=== PATIENT | male | born 1930 | race Caucasian/White ===

== ENCOUNTER 2018-08-27 20:58 | Inpatient (IN) | payer MEDICARE ==
[~2018-08-27] VITALS: Ht 172.7 cm; Wt 65.8 kg
--- NOTE | 2018-08-27 21:25 | NUR ---
Patient bib caregiver. AAOX2. Speech is clear. No neuro deficits. Patient came in for c/o generalized weakness per caregiver. Respiratory even and unlabored. No GI/ distress noted Patient in bed at lowest position, side rails upx2, call light within reach. Fall precautions implemented per protocol.
[2018-08-27] MEDS ORDERED: LORA2TAB95 PO (21:31)
[2018-08-27] MEDS ORDERED: IPRA4AER IH (21:31)
[2018-08-27] MEDS ORDERED: TRAZ-214 PO (21:31)
[2018-08-27] MEDS ORDERED: POTA10TA15 PO (21:31)
[2018-08-27] MEDS ORDERED: FURO-152 PO (21:31)
[2018-08-27] MEDS ORDERED: PIPERACILLIN/TAZOBACTAM/D5W 50 ML IV ONE (21:59)
[2018-08-27] MEDS ORDERED: PIPERACILLIN SODIUM/TAZOBACTAM 3.375 G in IV DEXTROSE 5% 50 ML IV ONE (22:00)
[2018-08-27] MEDS ORDERED: LEVOFLOXACIN 500 MG/D5W 100ML PIGGYBACK IV ONE (22:00)
[2018-08-27] MEDS ORDERED: IV NORMAL SALINE 1000 ML BAG IV ONE (22:00)
[2018-08-27 22:15] LABS: BASOPHILS % (AUTO) 0.4 % (0.0-2.0); EOSINOPHILS # (AUTO) 0.1 K/uL (0.0-0.7); EOSINOPHILS % (AUTO) 0.6 % (0.0-7.0); HEMATOCRIT 50.2 % (36.7-47.1); HEMOGLOBIN 16.2 g/dL (12.5-16.3); LYMPHOCYTES # (AUTO) 0.9 K/uL (20.0-40.0); LYMPHOCYTES % (AUTO) 9.8 % (20.5-51.5); MEAN CORPUSCULAR HEMOGLOBIN 29.2 uug (23.8-33.4); MEAN CORPUSCULAR HGB CONC 32 g/dL (32.5-36.3); MEAN CORPUSCULAR VOLUME 90.4 fL (73.0-96.2); MONOCYTES # (AUTO) 0.2 K/uL (2.0-10.0); MONOCYTES % (AUTO) 1.9 % (0.0-11.0); NEUTROPHILS # (AUTO) 7.8 K/uL (1.8-8.9); NEUTROPHILS % (AUTO) 87.3 % (38.5-71.5); PLATELET COUNT (AUTO) 115 K/uL (152-348); RED BLOOD CELL COUNT(AUTO) 5.55 MIL/uL (4.06-5.63)
[2018-08-27 22:21] LABS: CARBON DIOXIDE 29 mmol/L (21-32); CHLORIDE 122 mmol/L (98-107); CREATININE 1.2 mg/dL (0.6-1.3); GLUCOSE 108 mg/dL (74-106); UREA NITROGEN, BLOOD 39 mg/dL (7-18)
[2018-08-27 22:29] LABS: BAND % (MANUAL) 3 % (0-10); LYMPHOCYTES % (MANUAL) 9 % (20-40); NEUTROPHILS % (MANUAL) 88 % (42-75)
[2018-08-27] MEDS ORDERED: LIDOCAINE 2% (UROJET) 10 ML JELLY MM ONE ×2 (22:30→22:32)
--- NOTE | 2018-08-27 22:30 | NUR ---
Patient in bed at lowest position, NAD.
[2018-08-27 22:35] LABS: ALANINE AMINOTRANSFERASE 28 U/L (16-63); ALKALINE PHOSPHATASE 118 U/L (50-136); ASPARTATE AMINOTRANSFERASE 16 U/L (15-37); BILIRUBIN,DIRECT 0.3 mg/dL (0.0-0.2); BILIRUBIN,TOTAL 1.3 mg/dL (0.2-1.0); TOTAL PROTEIN, SERUM 7.6 g/dL (6.4-8.2)
[2018-08-27] MEDS ORDERED: LEVOFLOXACIN 500 MG/D5W 100 ML ONE (22:52)
[2018-08-27 23:47] LABS: *BILIRUBIN,URIN NEGATIVE (NEGATIVE); *BLOOD, URINE 3+ (NEGATIVE); *CLARITY,URINE CLOUDY (CLEAR); *COLOR,URINE YELLOW (YELLOW); *KETONES,URINE NEGATIVE (NEGATIVE); *UROBILINOGEN,URINE 0.2 E.U./dl (NORMAL); LEUKOCYTE ESTERASE ,URINE 2+ (NEGATIVE); NITRITE, URINE POSITIVE (NEGATIVE); UGLUCOSE NEGATIVE (NEGATIVE)
[2018-08-27 23:55] LABS: BACTERIA,URINE MANY /HPF (NONE SEEN); RBC,URINE TNTC /HPF (0-3); SQUAMOUS EPITHELIAL CELL,UR MANY /HPF (NONE SEEN); WBC,URINE TNTC /HPF (0-3)
--- NOTE | 2018-08-28 00:04 | NUR ---
[facility] called for panel.
[2018-08-28] MEDS ORDERED: IV NS 1000 ML 1,000 ML IV PRN (00:09)
[2018-08-28] MEDS ORDERED: HYDROCODONE/APAP 5-325MG TABLET PO PRN (00:15)
[2018-08-28] MEDS ORDERED: Medication Not On Formulary EA (Lorazepam (Ativan) 2 MG) PO PRN (00:15)
[2018-08-28] MEDS ORDERED: MAGNESIUM HYDROXIDE 30 ML LIQUID UDC PO PRN (00:15)
[2018-08-28] MEDS ORDERED: ONDANSETRON 4 MG/2 ML VIAL IV PRN (00:15)
[2018-08-28] MEDS ORDERED: ACETAMINOPHEN 325 MG TABLET PO PRN (00:15)
[2018-08-28] MEDS ORDERED: Z GUARD REMEDY PASTE 57 GM TUBE TOP PRN (00:15)
--- NOTE | 2018-08-28 00:18 | NUR ---
Report given to GUERO Glover TELE
--- NOTE | 2018-08-28 00:46 | NUR ---
Spoke to Aarti caregiver, patient did not come with advanced directive. Per caregiver she states that patient is DNR. Advised caregiver to fax over a copy or bring it in order to deliver the desired care per patients needs. Caregiver verbalizes instructions given.
--- NOTE | 2018-08-28 01:03 | NUR ---
Patient transfered to [facility] in stable condition.
[2018-08-28 01:30] VITALS: BP 113/73
[2018-08-28 04:00] VITALS: BP 82/54
[2018-08-28] MEDS ORDERED: PIPERACILLIN/TAZOBACTAM/D5W 50 ML IV ONE (05:42)
[2018-08-28] MEDS ORDERED: PIPERACILLIN/TAZOBACTAM/D5W 50 ML IV SCH (06:00)
[2018-08-28] MEDS: PANTOPRAZOLE SODIUM 40 MG TABLET.DR PO SCH (06:20)
--- NOTE | 2018-08-28 07:04 | NUR ---
end of shift report ADMITTED TO ROOM 305; PATIENT HYPOTHERMIC AT 94; PLACED SNEHA HUGGER; SKIN SURVEILLANCE DONE; KEPT SAFE AND COMFORTABLE; VSS; IVF STARTED
[2018-08-28] MEDS ORDERED: IV 1/2NS 1000 ML 1,000 ML IV PRN (08:45)
[2018-08-28 10:10] LABS: BASOPHILS % (AUTO) 0.2 % (0.0-2.0); EOSINOPHILS % (AUTO) 0.1 % (0.0-7.0); HEMATOCRIT 41.5 % (36.7-47.1); HEMOGLOBIN 13.6 g/dL (12.5-16.3); LYMPHOCYTES # (AUTO) 0.8 K/uL (20.0-40.0); LYMPHOCYTES % (AUTO) 6.5 % (20.5-51.5); MEAN CORPUSCULAR HEMOGLOBIN 29.4 uug (23.8-33.4); MEAN CORPUSCULAR HGB CONC 33 g/dL (32.5-36.3); MEAN CORPUSCULAR VOLUME 89.9 fL (73.0-96.2); MONOCYTES # (AUTO) 0.3 K/uL (2.0-10.0); MONOCYTES % (AUTO) 2.1 % (0.0-11.0); NEUTROPHILS # (AUTO) 11.4 K/uL (1.8-8.9); NEUTROPHILS % (AUTO) 91.1 % (38.5-71.5); PLATELET COUNT (AUTO) 88 K/uL (152-348); RED BLOOD CELL COUNT(AUTO) 4.62 MIL/uL (4.06-5.63); WHITE BLOOD COUNT (AUTO) 12.5 K/uL (3.6-10.2)
--- NOTE | 2018-08-28 10:22 | NUR ---
The patient is confused and refusing the exam. The order for complete abdomen ultrasound is edited to abdomen limited. NATACHA song.
[2018-08-28 10:26] LABS: CARBON DIOXIDE 25 mmol/L (21-32); CHLORIDE 123 mmol/L (98-107); CREATININE 1.3 mg/dL (0.6-1.3); GLUCOSE 70 mg/dL (74-106); POTASSIUM 3.7 mmol/L (3.5-5.1); UREA NITROGEN, BLOOD 39 mg/dL (7-18)
[2018-08-28 10:29] LABS: BAND % (MANUAL) 5 % (0-10); LYMPHOCYTES % (MANUAL) 7 % (20-40); MONOCYTES % (MANUAL) 4 % (2-10); NEUTROPHILS % (MANUAL) 84 % (42-75)
[2018-08-28 11:30] VITALS: BP 162/58
--- NOTE | 2018-08-28 13:30 | NUR ---
Patient removed gautam catheter, and IV left antecubital. Patient cleaned and partial linen change. Saravanan Combs RN
[2018-08-28] MEDS: PIPERACILLIN/TAZOBACTAM/D5W 3.375 G in PREMIXED 1 EACH IV SCH ×2 (14:49→22:22)
[2018-08-28 16:15] VITALS: BP 105/69
--- NOTE | 2018-08-28 18:00 | NUR ---
Patient 2nd IV out, and did start #18 guage IV Left forearm. Feeding patient 80% of dinner, full assist. Saravanan Combs RN
--- NOTE | 2018-08-28 19:00 | NUR ---
PATIENT AWAKE BUT FORGETFUL. PATIENT PULLED OUT IV, AM RN REINSERT NEW ONE ON R FOREARM. REORIENT PATIENT, CONT TO MONITOR.
[2018-08-28 20:00] VITALS: BP 103/72
[2018-08-28] MEDS: TRAZODONE 100 MG TABLET PO SCH (20:00)
--- NOTE | 2018-08-28 20:00 | NUR ---
PATIENT WAS PICKING ON IV LINES. ASKED PATIENT IF HE IN PAIN, STATED HE'S NOT BUT WANTS FOOD. GIVEN PATIENT A TUNA SANDWICH, PUDDING AND WATER. KEPT PATIENT CLEAN AND DRY. PATIENT EXPRESSED SATISFACTION ON MEALS GIVEN. CONT TO REORIENT PATIENT NOT TO PULLED OUT HIS IV LINE. CONT TO MONITOR.
[2018-08-28] MEDS: LORAZEPAM 1 MG TABLET PO PRN ×2 (21:16→21:17)
--- NOTE | 2018-08-28 21:17 | NUR ---
PATIENT RESTLESS, PULLED OUT IV LINE AGAIN. PATIENT RISK FOR INJURY, REORIENT PATIENT NOT TO REMOVE IV LINE, BUT NOT EFFECTIVE, PATIENT UNABLE TO FOLLOW INSTRUCTIONS. GIVEN ATIVAN ORDERED FOR RESTLESSNESS AND PULLING OUT IV LINES. CONT TO MONITOR.
[2018-08-29] VITALS: BP 90/57
--- NOTE | 2018-08-29 | NUR ---
NOTIFY NOMI AMOS NP THAT PATIENT PULLING OUT IV MULTIPLE TIMES, WITH ORDER TO PUT HAND MITTENTS.
[2018-08-29 04:00] VITALS: BP 103/65
[2018-08-29] MEDS: PIPERACILLIN/TAZOBACTAM/D5W 3.375 G in PREMIXED 1 EACH IV SCH (06:04)
--- NOTE | 2018-08-29 06:10 | NUR ---
PLACE A CALL TO DR. KAZ MITCHELL AND NOTIFY MD THAT PATIENT HAS NO FAMILY THAT WILL SIGN THE CONSENT FOR HIDA SCAN. MD DISCONTINUE THE ORDER, NOTIFY RADIOLOGY DEPT.
[2018-08-29] MEDS: PANTOPRAZOLE SODIUM 40 MG TABLET.DR PO SCH (06:25)
[2018-08-29 06:54] LABS: BASOPHILS % (AUTO) 0.4 % (0.0-2.0); EOSINOPHILS # (AUTO) 0.1 K/uL (0.0-0.7); EOSINOPHILS % (AUTO) 0.7 % (0.0-7.0); HEMATOCRIT 35.9 % (36.7-47.1); HEMOGLOBIN 11.9 g/dL (12.5-16.3); LYMPHOCYTES # (AUTO) 1.3 K/uL (20.0-40.0); LYMPHOCYTES % (AUTO) 15.4 % (20.5-51.5); MEAN CORPUSCULAR HEMOGLOBIN 29.6 uug (23.8-33.4); MEAN CORPUSCULAR HGB CONC 33 g/dL (32.5-36.3); MEAN CORPUSCULAR VOLUME 89.5 fL (73.0-96.2); MONOCYTES # (AUTO) 0.3 K/uL (2.0-10.0); MONOCYTES % (AUTO) 3.2 % (0.0-11.0); NEUTROPHILS # (AUTO) 6.6 K/uL (1.8-8.9); NEUTROPHILS % (AUTO) 80.3 % (38.5-71.5); PLATELET COUNT (AUTO) 69 K/uL (152-348); RED BLOOD CELL COUNT(AUTO) 4.01 MIL/uL (4.06-5.63); WHITE BLOOD COUNT (AUTO) 8.2 K/uL (3.6-10.2)
[2018-08-29 07:14] LABS: THYROID STIMULATING HORMONE 1.098 mIU/mL (0.358-3.740)
--- NOTE | 2018-08-29 07:20 | NUR ---
Upon receiving report pt. restless and agitated. LfA swelling, cold to touch iv. site noted to be wrapped with dressing. dressing removed arm elevated. pt. on NC 4 liter vitals stable.
[2018-08-29 07:21] LABS: BAND % (MANUAL) 3 % (0-10); LYMPHOCYTES % (MANUAL) 24 % (20-40); MONOCYTES % (MANUAL) 2 % (2-10); NEUTROPHILS % (MANUAL) 71 % (42-75)
[2018-08-29 07:24] LABS: ALANINE AMINOTRANSFERASE 21 U/L (16-63); ALKALINE PHOSPHATASE 79 U/L (50-136); ASPARTATE AMINOTRANSFERASE 36 U/L (15-37); BILIRUBIN,DIRECT 0.2 mg/dL (0.0-0.2); BILIRUBIN,TOTAL 2.3 mg/dL (0.2-1.0); CARBON DIOXIDE 25 mmol/L (21-32); CHLORIDE 124 mmol/L (98-107); CHOLESTEROL 84 mg/dL (<200); CREATININE 1.5 mg/dL (0.6-1.3); GLUCOSE 81 mg/dL (74-106); HDL CHOLESTEROL 42 mg/dL (40-60); MAGNESIUM 2.2 mg/dL (1.8-2.4); PHOSPHOROUS 2.3 mg/dL (2.5-4.9); TOTAL PROTEIN, SERUM 5.5 g/dL (6.4-8.2); TRIGLYCERIDES 55 MG/DL (30-150); UREA NITROGEN, BLOOD 39 mg/dL (7-18)
--- NOTE | 2018-08-29 07:28 | NUR ---
PATIENT PULLING IV AND TUBES, UNABLE TO FOLLOW INSTRUCTIONS, RISK FOR INJURY. NOTIFY DANDRE WITH ORDER. Addendum: 08/29/18 at 0751 by VALERIE TORRES RN PATIENT PULLING IV AND TUBES, UNABLE TO FOLLOW INSTRUCTIONS, RISK FOR INJURY. NOTIFY DANDRE WITH ORDER. CHARTING IN ERROR.
[2018-08-29] MEDS ORDERED: DEXTROSE 50% 50 ML DISP.SYRIN IV PRN (07:45)
[2018-08-29] MEDS ORDERED: NEUTRA PHOS PACKET PO ONE (07:45)
[2018-08-29 08:00] VITALS: BP 104/65
[2018-08-29] MEDS ORDERED: POTASSIUM PHOSPHATE MM 7.5 MMOL in IV DEXTROSE 5% 100 ML IV SCH (08:45)
[2018-08-29] MEDS: POTASSIUM CHLORIDE 20 MEQ in IV D5W 1000ML 1,000 ML IV PRN ×2 (09:01→20:02)
--- NOTE | 2018-08-29 09:57 | NUR ---
INFORMATION SENT: FACESHEET,CONSULTATION,H&P,IMAGING,24 HOURS REPORT,UR-08/28 INSURANCE NAME: [facility] FAX NUMBER: [phone] FAX SENT
[2018-08-29] MEDS: BLOOD SUGAR DIAGNOSTIC 1 EACH STRIP VI SCH ×3 (11:22→23:41)
[2018-08-29 11:39] VITALS: BP 110/68
[2018-08-29] MEDS: MEROPENEM 500 MG in IV NORMAL SALINE 50 ML IV SCH (13:23)
[2018-08-29 15:45] VITALS: BP 114/74
[2018-08-29] MEDS: LORAZEPAM 1 MG TABLET PO PRN (17:18)
--- NOTE | 2018-08-29 18:35 | NUR ---
Patient left in bed resting slightly agitated and medicated as ordered. , awaiting 1:1 for safety due several attempts to get out of bed un-supervised currently on restrains asim Mitbernardo extremities warm to touch circulation intact. Tolerated food with no signs of aspiration.
--- NOTE | 2018-08-29 19:25 | NUR ---
Received patient awake in bed, not in any form of distress. Noted with oxygen support at 4lpm via nasal cannula, tolerating with oxygen saturation at 100%. Patient is confused and had attempt to get out of bed during the day shift hence the reason for a 1:1 sitter at the bedside for safety. With IV access at the left upper arm to ongoing IV fluid, infusing well. With bilateral mittens. Noted with air mattress in place and SCD on both legs. Bed in low position, locked, side rails up for safety. Will continue to monitor.
[2018-08-29] MEDS: TRAZODONE 100 MG TABLET PO SCH (20:04)
[2018-08-29 20:36] VITALS: BP 101/65
[2018-08-29] MEDS: INSULIN REGULAR, HUMAN 300 UNIT/3 ML VIAL SQ PRN (23:45)
[2018-08-30 00:05] VITALS: BP 116/60
--- NOTE | 2018-08-30 00:05 | NUR ---
Unable to check patient's temperature orally, checked rectal temperature = 95.8F, placed Tracy hugger and notified sales consultant , Joao Valderrama. will continue to monitor closely, noted sitter present at bedside for safety.
--- NOTE | 2018-08-30 01:18 | NUR ---
Spoke with Joao Valderrama NP who said to continue the Tracy Hugger and closely monitor the patient's temperature. No new orders per Dr. Valderrama.
[2018-08-30] MEDS: MEROPENEM 500 MG in IV NORMAL SALINE 50 ML IV SCH ×2 (01:52→14:38)
[2018-08-30] MEDS: LORAZEPAM 1 MG TABLET PO PRN (01:58)
[2018-08-30] MEDS: PANTOPRAZOLE SODIUM 40 MG TABLET.DR PO SCH (06:26)
[2018-08-30] MEDS: POTASSIUM CHLORIDE 20 MEQ in IV D5W 1000ML 1,000 ML IV PRN ×3 (06:27→23:27)
[2018-08-30] MEDS: BLOOD SUGAR DIAGNOSTIC 1 EACH STRIP VI SCH ×4 (06:35→23:30)
--- NOTE | 2018-08-30 06:42 | NUR ---
Patient slept intermittently throughout the night. Maintained oxygen support at 4lpm via nasal cannula. Patient still confused and gets agitated, noted with 1:1 sitter at the bedside for safety. Still with IV access at the left upper arm to ongoing IV fluid, infusing well. Patient still attempting to remove IV access hence still with bilateral mittens. Turned to sides and repositioned. Closely monitored temperature, noted latest oral temperature is 97.7F, david hugger removed, stand by at bedside.
[2018-08-30 07:24] LABS: BASOPHILS # (AUTO) 0.1 K/uL (0.0-8.0); BASOPHILS % (AUTO) 1.3 % (0.0-2.0); EOSINOPHILS # (AUTO) 0.1 K/uL (0.0-0.7); EOSINOPHILS % (AUTO) 1.4 % (0.0-7.0); HEMOGLOBIN 12.1 g/dL (12.5-16.3); LYMPHOCYTES # (AUTO) 1.3 K/uL (20.0-40.0); LYMPHOCYTES % (AUTO) 25.3 % (20.5-51.5); MEAN CORPUSCULAR HEMOGLOBIN 29.6 uug (23.8-33.4); MEAN CORPUSCULAR HGB CONC 34 g/dL (32.5-36.3); MEAN CORPUSCULAR VOLUME 88.5 fL (73.0-96.2); MONOCYTES # (AUTO) 0.2 K/uL (2.0-10.0); MONOCYTES % (AUTO) 4.3 % (0.0-11.0); NEUTROPHILS # (AUTO) 3.4 K/uL (1.8-8.9); NEUTROPHILS % (AUTO) 67.7 % (38.5-71.5); PLATELET COUNT (AUTO) 70 K/uL (152-348); RED BLOOD CELL COUNT(AUTO) 4.07 MIL/uL (4.06-5.63)
[2018-08-30 07:34] LABS: CARBON DIOXIDE 23 mmol/L (21-32); CHLORIDE 119 mmol/L (98-107); CREATININE 1.2 mg/dL (0.6-1.3); GLUCOSE 94 mg/dL (74-106); PHOSPHOROUS 2.5 mg/dL (2.5-4.9); POTASSIUM 3.5 mmol/L (3.5-5.1); UREA NITROGEN, BLOOD 26 mg/dL (7-18)
--- NOTE | 2018-08-30 07:36 | NUR ---
INFORMATION SENT: FACESHEET,PROGRESS NOTES 08/29,UR-08/29,IMAGING,24 HOURS REPORT INSURANCE NAME:[facility] FAX NUMBER: [phone] / [phone] FAX SENT
[2018-08-30 08:19] LABS: BAND % (MANUAL) 1 % (0-10); EOSINOPHILS % (MANUAL) 1 % (0-8); LYMPHOCYTES % (MANUAL) 30 % (20-40); MONOCYTES % (MANUAL) 4 % (2-10); NEUTROPHILS % (MANUAL) 63 % (42-75)
[2018-08-30 08:22] LABS: REACTIVE LYMPHOCYTES 1 % (0-0)
[2018-08-30 11:22] VITALS: BP 108/52
[2018-08-30 15:37] VITALS: BP 108/63
[2018-08-30] MEDS ORDERED: DEXTROSE 5% IV ONE (17:30)
[2018-08-30] MEDS ORDERED: GENTAMICIN SULFATE IV ONE (17:30)
--- NOTE | 2018-08-30 17:30 | NUR ---
contacted md for change of condition per observation of disc pad grinder. RN TELEPHONE TRIAGE states that patient was more alert and oriented from previous days. pt also has non productive cough. commented that patient also has consistency of diet changed to full liquid but patient unable to swallow and eat when observed. pt placed on NPO and had stat cxr ordered. labs ordered. will continue to monitor.
--- NOTE | 2018-08-30 17:40 | NUR ---
CLINICAL PHARMACY NOTE: GENTAMICIN PHARMACY TO DOSE Subjective: To start gentamicin in this 87 y/o male for indication of UTI Objective: height 172cm weight 66kg bmi 22.2 BUN 26 Scr 1.2 (same as baseline) wbc 5.0 temp 97.2 Assessment/Plan Will start extended dosing interval as pt renal fxn remains fairly stable, per RN report and MD notes, no mentions of ascites, kenyon or other criteria to exclude. Will dose 460mg x 1 gentamicin dose (~7mg/kg TBW - pt not obese) and take random level ~10hrs later scheduled draw at 0430 tomorrow. Will check level with nomogram for further extended dosing. Will follow
--- NOTE | 2018-08-30 19:20 | NUR ---
Received patient asleep on high back rest, not in any form of distress. Noted with oxygen support at 3lpm via nasal cannula, tolerated. Per report patient still is confused and had attempts to get out of bed during the day shift hence the reason for a 1:1 sitter at the bedside for safety. With IV access at the left upper arm to ongoing IV fluid, infusing well now at 75mls/hr. Still with bilateral mittens. Noted with air mattress in place and SCD on both legs. Patient during the day was unable to tolerate full liquid thickened diet. Patient to be maintained on NPO. Bed in low position, locked, side rails up for safety. Will continue to monitor.
[2018-08-30 20:12] VITALS: BP 100/59
[2018-08-30] MEDS: TRAZODONE 100 MG TABLET PO SCH (21:00)
[2018-08-31 05:17] VITALS: BP 102/59
[2018-08-31 05:26] LABS: BASOPHILS % (AUTO) 0.6 % (0.0-2.0); EOSINOPHILS # (AUTO) 0.1 K/uL (0.0-0.7); EOSINOPHILS % (AUTO) 1.3 % (0.0-7.0); HEMATOCRIT 38.4 % (36.7-47.1); HEMOGLOBIN 12.8 g/dL (12.5-16.3); LYMPHOCYTES # (AUTO) 1.3 K/uL (20.0-40.0); LYMPHOCYTES % (AUTO) 23.2 % (20.5-51.5); MEAN CORPUSCULAR HEMOGLOBIN 29.6 uug (23.8-33.4); MEAN CORPUSCULAR HGB CONC 33 g/dL (32.5-36.3); MEAN CORPUSCULAR VOLUME 88.9 fL (73.0-96.2); MONOCYTES # (AUTO) 0.2 K/uL (2.0-10.0); MONOCYTES % (AUTO) 4.3 % (0.0-11.0); NEUTROPHILS # (AUTO) 3.9 K/uL (1.8-8.9); NEUTROPHILS % (AUTO) 70.6 % (38.5-71.5); PLATELET COUNT (AUTO) 77 K/uL (152-348); RED BLOOD CELL COUNT(AUTO) 4.32 MIL/uL (4.06-5.63); WHITE BLOOD COUNT (AUTO) 5.5 K/uL (3.6-10.2)
[2018-08-31 05:34] LABS: CARBON DIOXIDE 25 mmol/L (21-32); CHLORIDE 113 mmol/L (98-107); CREATININE 1.1 mg/dL (0.6-1.3); GLUCOSE 107 mg/dL (74-106); POTASSIUM 3.8 mmol/L (3.5-5.1); UREA NITROGEN, BLOOD 18 mg/dL (7-18)
[2018-08-31] MEDS: BLOOD SUGAR DIAGNOSTIC 1 EACH STRIP VI SCH ×4 (05:50→23:56)
[2018-08-31] MEDS: PANTOPRAZOLE SODIUM 40 MG TABLET.DR PO SCH (06:14)
--- NOTE | 2018-08-31 06:24 | NUR ---
Patient slept intermittently throughout the night. Maintained oxygen support at 4lpm via nasal cannula. Still with 1:1 sitter at the bedside for safety. Still with IV access at the left upper arm to ongoing IV fluid, infusing well.Turned to sides and repositioned. Patient afebrile and no hypothermic episodes noted. Ensured safety and comfort. No other untoward events noted.
--- NOTE | 2018-08-31 06:29 | NUR ---
Patient still to sleepy to take medication, patient has a high risk for aspiration.
--- NOTE | 2018-08-31 07:10 | NUR ---
received report from shift supervisor melting nurse, patient in bed asleep, no distress noted at this time, bed in low position, side rails up x2, sitter at bedside.
[2018-08-31 08:00] VITALS: BP 125/78
--- NOTE | 2018-08-31 10:12 | NUR ---
CLINICAL PHARMACY NOTE: GENTAMICIN PHARMACY TO DOSE Subjective: To continue gentamicin in this 87 y/o male for indication of UTI Objective: height 172cm weight 66kg bmi 22.2 BUN 18 Scr 1.1 wbc 5.5 temp 97.6 Gentamicin random level; 10.7 (10 hrs post once daily gent dose) Assessment/Plan Since the level falls outside of nomogram, will not give a dose today & will re-check gentamicin random level tomorrow with am labs. Will dose using traditional method or by level debonding on the level in am. Will follow
[2018-08-31 10:21] VITALS: BP 125/78
[2018-08-31] MEDS: IV 1/2NS 1000 ML 1,000 ML IV PRN (10:28)
[2018-08-31 12:00] VITALS: BP 120/82
--- NOTE | 2018-08-31 18:02 | NUR ---
Patient continues to be confused, and not making sense when talking. Patient did however tolerate a full lunch at 100% with any aspiration or coughing. Currently patient in bed, no distress noted, bed in low position, side rails x2. bed alarm on.
[2018-08-31 19:05] VITALS: BP 102/60
--- NOTE | 2018-08-31 19:45 | NUR ---
RECEIVED PATIENT RESTING IN BED, EASILY TO AROUSE WITH 1:1 SITTER AT BEDSIDE. HOB IS IN HIGH KRUEGER POSITION. NO SIGNS OF ACUTE DISTRESS. NO SIGNS OF PAIN. PATIENT IS ON 4L NC AND O2 IS AT 97% IVF RUNNING ON THE LEFT UPPER ARM. SAFETY MEASURES INITIATED. BED IS LOW AND LOCKED, CALL LIGHT WITHIN REACH. WILL CONTINUE TO MONITOR.
[2018-08-31] MEDS: TRAZODONE 100 MG TABLET PO SCH (20:50)
[2018-08-31] MEDS ORDERED: CEFTRIAXONE 1 G VIAL ONE (21:15)
[2018-08-31] MEDS: CEFTRIAXONE 1 G in IV DEXTROSE 5% 50 ML IV SCH (21:28)
[2018-09-01] MEDS: IV 1/2NS 1000 ML 1,000 ML IV PRN (00:06)
[2018-09-01 04:00] VITALS: BP 108/53
[2018-09-01 04:21] VITALS: BP 108/53
[2018-09-01] MEDS: PANTOPRAZOLE SODIUM 40 MG TABLET.DR PO SCH (06:05)
[2018-09-01] MEDS: BLOOD SUGAR DIAGNOSTIC 1 EACH STRIP VI SCH ×3 (06:12→18:00)
--- NOTE | 2018-09-01 06:12 | NUR ---
PATIENT SLEPT WELL THROUGHOUT SHIFT WITH 1:1 SITTER. NO SIGNS OF ACUTE DISTRESS NOTED. NO SIGNS OF PAIN OR SOB. PATIENT WAS ABLE TO ANSWER MY QUESTIONS. MEDICATION GIVEN ORDERED AND TOLERATED WELL. MITTEN RESTRAINTS WERE NOT USED TONIGHT, PATIENT WAS ASLEEP MOST OF THE TIME AND COOPERATIVE WHEN AWAKE. SAFETY MEASURES GIVEN.
[2018-09-01 06:52] LABS: BASOPHILS % (AUTO) 0.5 % (0.0-2.0); EOSINOPHILS # (AUTO) 0.1 K/uL (0.0-0.7); HEMATOCRIT 37.9 % (36.7-47.1); HEMOGLOBIN 12.6 g/dL (12.5-16.3); LYMPHOCYTES # (AUTO) 1.4 K/uL (20.0-40.0); MEAN CORPUSCULAR HEMOGLOBIN 29.4 uug (23.8-33.4); MEAN CORPUSCULAR HGB CONC 33 g/dL (32.5-36.3); MEAN CORPUSCULAR VOLUME 88.7 fL (73.0-96.2); MONOCYTES # (AUTO) 0.5 K/uL (2.0-10.0); MONOCYTES % (AUTO) 6.4 % (0.0-11.0); NEUTROPHILS # (AUTO) 5.5 K/uL (1.8-8.9); NEUTROPHILS % (AUTO) 73.1 % (38.5-71.5); PLATELET COUNT (AUTO) 74 K/uL (152-348); RED BLOOD CELL COUNT(AUTO) 4.28 MIL/uL (4.06-5.63); WHITE BLOOD COUNT (AUTO) 7.6 K/uL (3.6-10.2)
[2018-09-01 07:08] LABS: CARBON DIOXIDE 24 mmol/L (21-32); CHLORIDE 112 mmol/L (98-107); GENTAMICIN,RANDOM 1.5 ug/mL (4.0-8.0); GLUCOSE 101 mg/dL (74-106); POTASSIUM 3.4 mmol/L (3.5-5.1); UREA NITROGEN, BLOOD 14 mg/dL (7-18)
[2018-09-01] MEDS ORDERED: POTASSIUM CHLORIDE 20 MEQ TAB.PRT.SR PO ONE (07:30)
[2018-09-01 07:41] VITALS: BP 122/66
[2018-09-01] MEDS ORDERED: NITR100C6 PO (09:18)
[2018-09-01 12:08] LABS: BAND % (MANUAL) 9 % (0-10); EOSINOPHILS % (MANUAL) 2 % (0-8); LYMPHOCYTES % (MANUAL) 20 % (20-40); MONOCYTES % (MANUAL) 5 % (2-10); NEUTROPHILS % (MANUAL) 64 % (42-75)
[2018-09-01] MEDS: INSULIN REGULAR, HUMAN 300 UNIT/3 ML VIAL SQ PRN (12:31)
[2018-09-01] MEDS ORDERED: GENTAMICIN SULFATE INJ 100 MG in IV DEXTROSE 5% 100 ML IV SCH (14:00)
[2018-09-01 15:55] VITALS: BP 105/68
[2018-09-01 19:40] VITALS: BP 112/70
[2018-09-01] MEDS: CEFTRIAXONE 1 G in IV DEXTROSE 5% 50 ML IV SCH (20:00)
--- NOTE | 2018-09-01 20:11 | NUR ---
RECEIVED PATIENT AWAKE IN BED, MORE ALERT THAN LAST NIGHT. PATIENT IS TO BE DISCHARGED, WAITING TO BE PICKED UP. DISCHARGE PACKET AT BEDSIDE. WILL CONTINUE TO MONITOR.
[2018-09-01] MEDS: TRAZODONE 100 MG TABLET PO SCH (21:29)
--- NOTE | 2018-09-01 21:50 | NUR ---
Patient was picked up by caregiver from board and care. Patient left in stable condition with all belongings and discharge summary packet given. Patient left in wheelchair with help from [employer] ME[employer]. 2000 dose of Rocephin was not given as patient was suppose to be picked up at 6pm and was ready to leave and IV was already removed, but caregiver said she was in traffic and arrived just now. Explained to caregiver that patient will be started on macrobid antibiotic for UTI.
--- NOTE | 2018-09-02 09:05 | NUR ---
INFORMATION SENT: FACESHEET,PROGRESS NOTES 08/30,08/31,09/01,UR-08/30,08/31,09/01,24 HOURS REPORT,IMAGING,DISCHARE SUMMARY INSURANCE NAME: [facility] / [employer] [facility] FAX NUMBER: [phone] / [phone] FAX SENT
--- NOTE | 2018-09-03 08:06 | NUR ---
INFORMATION SENT:LILLY PADILLA INSURANCE NAME:[facility] FAX NUMBER:[phone] FAX SENT
--- NOTE | 2018-09-04 07:48 | NUR ---
INFORMATION SENT: LILLY PADILLA INSURANCE NAME: [facility] / [facility] FAX NUMBER: [phone] / [phone] FAX SENT
== END 2018-09-01 22:05 | DRG 871 ==
LOC: ER 20:58 → TELE3 08-28 00:41 → MEDSURG3 08-30 15:47
PROVIDERS: ADMIT Nurse Practitioner Acute Care; ATTEND Nurse Practitioner Acute Care
DX: A41.51 Sepsis due to Escherichia coli [E. coli] (principal); G92 Toxic encephalopathy; N17.0 Acute kidney failure with tubular necrosis; N39.0 Urinary tract infection, site not specified; E87.2 Acidosis; E87.0 Hyperosmolality and hypernatremia; E44.0 Moderate protein-calorie malnutrition; J44.9 Chronic obstructive pulmonary disease, unspecified; E86.0 Dehydration; I25.10 Atherosclerotic heart disease of native coronary artery without angina pectoris; Z95.1 Presence of aortocoronary bypass graft; H91.90 Unspecified hearing loss, unspecified ear; Z79.899 Other long term (current) drug therapy; R62.7 Adult failure to thrive; Z68.22 Body mass index [BMI] 22.0-22.9, adult; I50.9 Heart failure, unspecified; F03.90 Unspecified dementia, unspecified severity, without behavioral disturbance, psychotic disturbance, mood disturbance, and anxiety; E78.5 Hyperlipidemia, unspecified; E83.39 Other disorders of phosphorus metabolism; I70.0 Atherosclerosis of aorta; E83.52 Hypercalcemia; K80.20 Calculus of gallbladder without cholecystitis without obstruction; R00.0 Tachycardia, unspecified
CPT/HCPCS: 36415; 70030-TC; 71045; 76705; 83605; 83735; 84100; 84443; 85025; 85730; 87040; 87077; 87086; 87400; 92523; 92526; 93005; G0378; J0696; J1580; J1815; J1956; J2185; J2543; J3480; J3490; J7030; J7060; J7070